=== PATIENT | female | born 1975 | race African-American/Black ===

== ENCOUNTER 2020-10-02 02:44 | Inpatient (IN) | payer SELFPAY ==
[2020-10-02] MEDS ORDERED: FUROSEMIDE 100 MG/10 ML VIAL IV ONE (03:15)
[2020-10-02 03:20] LABS: Arterial Blood Carboxyhemoglob 1.8 % (0-1.5); Blood O2 Saturation 82.3 % (92-98.5)
[2020-10-02 03:34] LABS: Protime INR 0.94
[2020-10-02] MEDS ORDERED: ONDANSETRON 4 MG/2 ML VIAL ONE ×3 (03:39→09:49)
[2020-10-02] MEDS ORDERED: HYDRALAZINE HCL 20 MG/ML VIAL ONE ×2 (03:41→09:23)
[2020-10-02] MEDS ORDERED: LABETALOL 20 MG/4ML SYRINGE IV ONE (03:54)
[2020-10-02 03:57] LABS: ALT/SGPT 84 U/L (12-78); AST/SGOT 51 U/L (15-37); Albumin 3.5 g/dL (3.4-5.0); Alkaline Phosphatase 204 U/L (45-117); BUN Blood Urea Nitrogen 36 mg/dL (7-18); Bicarbonate 21 mmol/L (21-32); Bilirubin Direct 0.2 mg/dL (0-0.2); Bilirubin Total 0.5 mg/dL (0.2-1.0); Magnesium 2.7 mg/dL (1.8-2.4); NT PRO-BNP 12138 pg/mL (<125); Potassium 4.4 mmol/L (3.5-5.1); Protein, Total 8.2 g/dL (6.4-8.2); Sodium Level 132 mmol/L (136-145); Troponin (Emerg Dept Use Only) < 0.02 ng/mL (0.0-0.045)
[2020-10-02 04:00] LABS: Glucose Level 515 mg/dL (74-106)
--- NOTE | 2020-10-02 04:16 | ER ---
Nurse's Notes [facility] Name: Alea Simental Age: 45 yrs Sex: Female : 1975 Arrival Date: 10/02/2020 Time: 02:45 Bed 28 [facility] MD: Diagnosis: Acute dyspnea. Hypoxia. Chronic renal failure. On dialysis. Uncontrolled hypertension Presentation: 10/02 02:50 Chief complaint: Patient states: pt arrives to ER, respiratory distress, reports sudden iw onset of SOB and chest pain tonight, hx of dialysis, MWF, pt is from out of town, pt diaphoretic, unable to speak in full sentences, tachypneic, unable to obtain SpO2, pt placed in ER bed 13, called RT for BiPAP. Coronavirus screen: At this time, the client does not indicate any symptoms associated with coronavirus-19. Ebola Screen: Patient negative for fever greater than or equal to 101.5 degrees Fahrenheit, and additional compatible Ebola Virus Disease symptoms Patient denies exposure to infectious person. Patient denies travel to an Ebola-affected area in the 21 days before illness onset. No symptoms or risks identified at this time. Initial Sepsis Screen: Does the patient meet any 2 criteria? No. Patient's initial sepsis screen is negative. Does the patient have a suspected source of infection? No. Patient's initial sepsis screen is negative. Risk Assessment: Do you want to hurt yourself or someone else? Patient reports no desire to harm self or others. Onset of symptoms was October 02, 2020. 02:50 Method Of Arrival: Wheelchair iw 02:50 Acuity: SAVANNAH 1 iw Historical: - Allergies: 05:24 Flagyl; aj1 - Home Meds: 05:24 amitriptyline 25 mg Oral tab [Active]; nifedipine 60 mg Oral TbER [Active]; carvedilol aj1 25 mg oral tab [Active]; ProAir HFA 90 mcg/actuation inhalation HFAA [Active]; medroxyprogesterone 10 mg Oral tab [Active]; Humalog 100 unit/mL Sub-Q crtg [Active]; amlodipine oral [Active]; - PMHx: 05:24 ESRD; Dialysis; M,W.F; Hypertension; aj1 Screenin:40 Abuse screen: Denies threats or abuse. Denies injuries from another. Nutritional aj1 screening: No deficits noted. Tuberculosis screening: No symptoms or risk factors identified. Assessment: 03:35 General: Appears distressed, uncomfortable, Behavior is agitated, anxious, restless. aj1 Pain: Complains of pain in chest Pain does not radiate. Pain currently is 10 out of 10 on a pain scale. Quality of pain is described as aching, sharp, stabbing. Neuro: Level of Consciousness is awake, alert, obeys commands. Cardiovascular: Reports chest pain, palpitations, shortness of breath, Heart tones S1 S2 present Patient's skin is warm and dry. Rhythm is sinus tachycardia. Respiratory: Reports shortness of breath at rest Airway is patent Respiratory effort is even, labored, with retractions, using tripod position, Respiratory pattern is regular, symmetrical, tachypnea Breath sounds with rales bilaterally. the patient has severe shortness of breath. GI: Abdomen is non-distended, Patient currently denies abdominal pain. : No signs and/or symptoms were reported regarding the genitourinary system. EENT: No signs and/or symptoms were reported regarding the EENT system. Derm: Skin is intact, Skin is diaphoretic, Skin is normal, Skin temperature is cool. Musculoskeletal: No signs and/or symptoms reported regarding the musculoskeletal system. 03:45 Reassessment: Dr Henderson notified that patient's BP remains elevated at this time. aj1 03:45 Reassessment: Patient refuses yuan and COVID swab at this time, states that if she aj1 feels less short of breath she will allow us to do it later. 04:03 Reassessment: glucose 515, creatinine 7.83 EDProvider informed. rr5 04:15 Reassessment: Patient states that she is still having a lot of chest pain. Notified Serg Barraza NP. Order received. 04:25 Reassessment: Patient is reporting nausea, Serg Barraza NP at bedside. Order received. aj1 04:30 Reassessment: Patient and/or family updated on plan of care and expected duration. Pain aj1 level reassessed. General: Appears in no apparent distress. uncomfortable, Behavior is cooperative, anxious. Pain: Complains of pain in chest. Neuro: Level of Consciousness is awake, alert, obeys commands. Cardiovascular: Patient's skin is warm and dry. Rhythm is sinus rhythm. Respiratory: Airway is patent Respiratory effort is even, unlabored, Respiratory pattern is regular, symmetrical, Breath sounds with rales bilaterally. the patient has mild shortness of breath. Derm: Skin is intact, Skin is dry, Skin is normal, Skin temperature is cool. 04:55 Reassessment: Patient is still reporting nausea. Notified Serg Barraza NP. Order aj1 received. 05:30 Reassessment: Patient appears in no apparent distress at this time. No changes from aj1 previously documented assessment. Patient and/or family updated on plan of care and expected duration. Pain level reassessed. Patient is alert, oriented x 3, equal unlabored respirations, skin warm/dry/pink. 06:00 Reassessment: Patient allowed staff to do COVID swab but is still refusing yuan at aj1 this time. 06:04 Reassessment: Patient continues to be nauseated, and has vomited small amounts. Patient aj1 removed Bi-PAP when she felt she needed to vomit and then put it back on. Notified Serg Barraza NP that patient is still vomiting. Patient still feels very short of breath at this time, O2 sats are 98% to 100% on Bi-PAP. Respiratory rate ranges from 28 to 42 breaths per minute at this time, depending on how much the patient is moving in bed. Patient has been instructed to try to rest and not move around too much. No new orders received at this time. 06:37 Reassessment: Dr. Garcia, hospitalist at bedside to evaluate patient. aj1 Vital Signs: 03:14 BP 252 / 124; Pulse 104; Resp 30 S; Pulse Ox 97% on BiPAP; iw 03:30 BP 240 / 110; Pulse 106; Resp 42; Pulse Ox 94% on BiPAP; aj1 03:40 BP 233 / 113; Pulse 107; Resp 38; Pulse Ox 99% on BiPAP; aj1 03:50 BP 164 / 96; Pulse 81; Resp 34; Pulse Ox 99% on BiPAP; aj1 03:55 BP 196 / 92; Pulse 78; Resp 35; Pulse Ox 99% on BiPAP; aj1 04:30 BP 205 / 96; Pulse 78; Resp 35; Pulse Ox 96% on BiPAP; aj1 05:00 BP 216 / 94; Pulse 84; Resp 28; Pulse Ox 96% ; aj1 05:30 BP 219 / 95; Pulse 83; Resp 28; Pulse Ox 98% on BiPAP; aj1 06:37 BP 220 / 93; Pulse 89; Resp 29; Pulse Ox 100% on BiPAP; aj1 ED Course: 02:45 Patient arrived in ED. es 02:55 Inserted saline lock: 20 gauge in right wrist, using aseptic technique. Blood collected.rr5 03:07 Triage completed. iw 03:23 XRAY Chest (1 view) In Process Unspecified. EDMS 03:28 Rainer Henderson MD is Attending Physician. pkl 03:30 Barbara Morales, WALDEMAR is Primary Nurse. aj1 03:30 Patient has correct armband on for positive identification. Placed in gown. Bed in low aj1 position. Call light in reach. Side rails up X2. telemetry monitor on. Pulse ox on. NIBP on. 04:13 Marc Garcia MD is Hospitalizing Provider. pkl 06:41 No provider procedures requiring assistance completed. aj1 09:49 Primary Nurse role handed off by Barbara Morales, WALDEMAR sv Administered Medications: 03:00 Drug: Lasix (furosemide) 80 mg Route: IVP; Site: right forearm; iw 03:20 Drug: Zofran (Ondansetron) 4 mg Route: IVP; Site: left wrist; aj1 03:31 Drug: hydrALAZINE 20 mg Route: IV; Rate: bolus; Site: right wrist; aj1 03:42 Drug: Labetalol 20 mg Route: IVP; Infused Over: 2 mins; Site: right wrist; aj1 04:25 Drug: Zofran (Ondansetron) 4 mg Route: IVP; Site: right wrist; aj1 04:55 Drug: Phenergan (promethazine) 12.5 mg Route: IVP; Site: right wrist; aj1 05:20 Drug: Insulin Regular Human 10 units {Co-Signature: dwight (Barbara Morales RN).} Route: iw IVP; Site: right wrist; 05:20 Drug: Insulin Regular Human 10 units {Co-Signature: dwight (Barbara Morales RN).} Route: iw Sub-Q; Site: right upper arm; Outcome: 04:15 Decision to Hospitalize by Provider. pkl 15:33 Patient left the ED. bd Signatures: Dispatcher [employer] EDMS Haydee Luu Angela, RN RN aj1 Saira Brink RN RN sv Lam, Pin, MD MD pkl Salyer, Edna es Williams, Irene, RN RN iw Marc Medrano RN RN rr5 Barbara Morales RN aj1 Corrections: (The following items were deleted from the chart) 05:53 05:47 BP 240 / 110; Pulse 106bpm; Resp 42bpm; Pulse Ox 94% BiPAP; aj1 aj1 06:40 04:30 Reassessment: Patient appears in no apparent distress at this time. No changes aj1 from previously documented assessment. Patient and/or family updated on plan of care and expected duration. Pain level reassessed. Patient is alert, oriented x 3, equal unlabored respirations, skin warm/dry/pink. aj1
--- NOTE | 2020-10-02 04:16 | EDPHYS ---
Physician Documentation [facility] Name: Alea Simental Age: 45 yrs Sex: Female : 1975 Arrival Date: 10/02/2020 Time: 02:45 Bed 28 Private MD: ED Physician Rainer Henderson HPI: 10/02 03:32 This 45 yrs old Black Female presents to ER via Wheelchair with complaints of Breathing pkl Difficulty, Respiratory Distress. 03:32 The patient has shortness of breath at rest. Onset: The symptoms/episode began/occurred pkl suddenly, just prior to arrival. Associated signs and symptoms: Pertinent positives: diaphoresis. Historical: - Allergies: 05:24 Flagyl; aj1 - Home Meds: 05:24 amitriptyline 25 mg Oral tab [Active]; nifedipine 60 mg Oral TbER [Active]; carvedilol aj1 25 mg oral tab [Active]; ProAir HFA 90 mcg/actuation inhalation HFAA [Active]; medroxyprogesterone 10 mg Oral tab [Active]; Humalog 100 unit/mL Sub-Q crtg [Active]; amlodipine oral [Active]; - PMHx: 05:24 ESRD; Dialysis; M,W.F; Hypertension; aj1 ROS: 03:32 Eyes: Negative for injury, pain, redness, and discharge, ENT: Negative for injury, pkl pain, and discharge, Neck: Negative for injury, pain, and swelling. 03:32 Cardiovascular: Positive for chest pain. 03:32 Respiratory: Positive for shortness of breath, at rest. 03:32 Abdomen/GI: Negative for abdominal pain, nausea, vomiting, and diarrhea. 03:32 Back: Negative for injury or acute deformity. 03:32 : Negative for urinary symptoms. 03:32 MS/extremity: Negative for acute changes. 03:32 Skin: Positive for diaphoresis. 03:32 Neuro: Negative for altered mental status, loss of consciousness. Exam: 03:32 Head/Face: Normocephalic, atraumatic. Eyes: Pupils equal round and reactive to light, pkl extra-ocular motions intact. Lids and lashes normal. Conjunctiva and sclera are non-icteric and not injected. Cornea within normal limits. Periorbital areas with no swelling, redness, or edema. ENT: Nares patent. No nasal discharge, no septal abnormalities noted. Tympanic membranes are normal and external auditory canals are clear. Oropharynx with no redness, swelling, or masses, exudates, or evidence of obstruction, uvula midline. Mucous membranes moist. Neck: Trachea midline, no thyromegaly or masses palpated, and no cervical lymphadenopathy. Supple, full range of motion without nuchal rigidity, or vertebral point tenderness. No Meningismus. Chest/axilla: Normal chest wall appearance and motion. Nontender with no deformity. No lesions are appreciated. 03:32 Cardiovascular: Rate: tachycardic, actual rate is 104 bpm, Rhythm: regular. 03:32 Respiratory: moderate respiratory distress is noted, Respirations: labored breathing, Breath sounds: rales, that are moderate, are scattered. 03:32 Abdomen/GI: Bowel sounds: normal, Palpation: abdomen is soft and non-tender. 03:32 Back: Exam negative for acute changes. 03:32 : Exam negative for acute changes. 03:32 Musculoskeletal/extremity: Exam is negative for acute changes. 03:32 Skin: Appearance: diaphoresis is noted. 03:32 Neuro: Orientation: is normal, Mentation: is normal, Cranial nerves: grossly normal, Motor: is normal. Vital Signs: 03:14 BP 252 / 124; Pulse 104; Resp 30 S; Pulse Ox 97% on BiPAP; iw 03:30 BP 240 / 110; Pulse 106; Resp 42; Pulse Ox 94% on BiPAP; aj1 03:40 BP 233 / 113; Pulse 107; Resp 38; Pulse Ox 99% on BiPAP; aj1 03:50 BP 164 / 96; Pulse 81; Resp 34; Pulse Ox 99% on BiPAP; aj1 03:55 BP 196 / 92; Pulse 78; Resp 35; Pulse Ox 99% on BiPAP; aj1 04:30 BP 205 / 96; Pulse 78; Resp 35; Pulse Ox 96% on BiPAP; aj1 05:00 BP 216 / 94; Pulse 84; Resp 28; Pulse Ox 96% ; aj1 05:30 BP 219 / 95; Pulse 83; Resp 28; Pulse Ox 98% on BiPAP; aj1 06:37 BP 220 / 93; Pulse 89; Resp 29; Pulse Ox 100% on BiPAP; aj1 MDM: 03:28 Patient medically screened. pkl 04:11 Data reviewed: vital signs, nurses notes, lab test result(s), EKG, radiologic studies, pkl plain films. ED course: Talked to Serg Barraza ( MOBILE MANAGER ) Admit to Dr. Marc Garcia. 10/02 02:54 Order name: Basic Metabolic Panel 10/02 02:54 Order name: CBC with Diff; Complete Time: 00:20 10/02 02:54 Order name: LFT's; Complete Time: 04:05 10/02 02:54 Order name: Magnesium; Complete Time: 04:05 10/02 02:54 Order name: NT PRO-BNP; Complete Time: 04:05 10/02 02:54 Order name: PT-INR; Complete Time: 04:05 10/02 02:54 Order name: Troponin (emerg Dept Use Only); Complete Time: 04:05 10/02 02:54 Order name: Basic Metabolic Panel; Complete Time: 04:05 [facility] 10/02 03:17 Order name: ABG Arterial Blood Gas; Complete Time: 03:30 [facility] 10/02 03:26 Order name: COVID-19 : Document "Date of Symptom Onset" if Symptomatic. [facility] 10/02 03:27 Order name: CORONAVIRUS [facility] 10/02 05:50 Order name: CBC Smear Scan; Complete Time: 00:20 [facility] 10/02 06:59 Order name: Glucose, Ancillary Testing; Complete Time: 00:20 [facility] 10/02 07:16 Order name: SARS-COV-2 RT PCR; Complete Time: 00:20 [facility] 10/02 02:52 Order name: BIPAP [facility] 10/02 02:54 Order name: XRAY Chest (1 view); Complete Time: 00:20 10/02 08:25 Order name: US; Complete Time: 00:20 [facility] 10/02 09:11 Order name: Glucose, Ancillary Testing; Complete Time: 00:20 [facility] 10/02 11:48 Order name: Troponin I; Complete Time: 00:20 [facility] 10/02 11:48 Order name: Lipid Profile; Complete Time: 00:20 [facility] 10/02 11:48 Order name: T4 Free; Complete Time: 00:20 [facility] 10/02 11:48 Order name: Thyroid Stimulating Hormone; Complete Time: 00:20 [facility] 10/02 12:16 Order name: Glucose, Ancillary Testing; Complete Time: 00:20 EDMS 10/02 02:54 Order name: EKG; Complete Time: 02:55 iw 10/02 02:54 Order name: Cardiac monitoring; Complete Time: 03:31 iw 10/02 02:54 Order name: EKG - Nurse/Tech; Complete Time: 05:00 iw 10/02 02:54 Order name: IV Saline Lock; Complete Time: 03:32 iw 10/02 02:54 Order name: Labs collected and sent; Complete Time: 03:32 iw 10/02 02:54 Order name: O2 Per Protocol; Complete Time: 03:32 iw 10/02 02:54 Order name: O2 Sat Monitoring; Complete Time: 03:32 iw 10/02 03:48 Order name: Labs - recollect needed: purple top; Complete Time: 05:47 mw2 10/02 04:53 Order name: Alexandermanisha sanderson Administered Medications: 03:00 Drug: Lasix (furosemide) 80 mg Route: IVP; Site: right forearm; iw 03:20 Drug: Zofran (Ondansetron) 4 mg Route: IVP; Site: left wrist; aj1 03:31 Drug: hydrALAZINE 20 mg Route: IV; Rate: bolus; Site: right wrist; aj1 03:42 Drug: Labetalol 20 mg Route: IVP; Infused Over: 2 mins; Site: right wrist; aj1 04:25 Drug: Zofran (Ondansetron) 4 mg Route: IVP; Site: right wrist; aj1 04:55 Drug: Phenergan (promethazine) 12.5 mg Route: IVP; Site: right wrist; aj1 05:20 Drug: Insulin Regular Human 10 units {Co-Signature: aj1 (Barbara Morales RN).} Route: iw IVP; Site: right wrist; 05:20 Drug: Insulin Regular Human 10 units {Co-Signature: anne1 (Barbara Morales RN).} Route: iw Sub-Q; Site: right upper arm; Disposition: 10/02/20 04:15 Hospitalization ordered by Marc Garcia for Inpatient Admission. Preliminary diagnosis is Acute dyspnea. Hypoxia. Chronic renal failure. On dialysis. Uncontrolled hypertension. - Bed requested for [facility] ER HOLD. - Status is Inpatient Admission. bd - Condition is Stable. - Problem is new. - Symptoms have improved. Signatures: Dispatcher [employer] EDMS Haydee Luu bd Barbara Morales RN RN aj1 Saira Brink RN RN sv Lam, Pin, MD MD pkl Belem Kurtz RN WALDEMAR iw Serg Barraza, PRESSURE CONTROL SUPERVISOR-C PRESSURE CONTROL SUPERVISOR-Cla1 Tuan Urbina mw2 Barbara Morales RN aj1 Corrections: (The following items were deleted from the chart) 07:22 04:15 Hospitalization Ordered by Marc Garcia MD for Inpatient Admission. Preliminary sv diagnosis is Acute dyspnea. Hypoxia. Chronic renal failure. On dialysis. Uncontrolled hypertension. Bed requested for Telemetry/MedSurg (Inpatient). Status is Inpatient Admission. Condition is Stable. Problem is new. Symptoms have improved. pkl 15:33 07:22 10/02/2020 04:15 Hospitalization Ordered by Marc Garcia MD for Inpatient bd Admission. Preliminary diagnosis is Acute dyspnea. Hypoxia. Chronic renal failure. On dialysis. Uncontrolled hypertension. Bed requested for [facility] ER HOLD. Status is Inpatient Admission. Condition is Stable. Problem is new. Symptoms have improved. sv
[2020-10-02] MEDS ORDERED: MORPHINE 2 MG/ML SYR ONE (04:34)
--- NOTE | 2020-10-02 04:40 | P.HP ---
Certification for Inpatient Patient admitted to: Inpatient With expected LOS: >2 Midnights Patient will require the following post-hospital care: None Practitioner: I am a practitioner with admitting privileges, knowledge of patient current condition, hospital course, and medical plan of care. Services: Services provided to patient in accordance with Admission requirements found in Title 42 Section 412.3 of the Code of Federal Regulations <ChristiSerg - Last Filed: 10/02/20 08:16> Patient History Date of Service: 10/02/20 Primary Care Provider: Out of town Reason for admission: Dyspnea, hypoxia History of Present Illness: 45-year-old female with history of hypertension, diabetes m ellitus type 2, ESRD on HD-MWF presents emergency department in respiratory distress. Patient barely able to speak, answer most questions with head nods on BiPAP at this time. [facility]/shortness of breath this evening, patient reports that she has not missed a dialysis, last dialysis was on Friday and completed. Upon arrival to the emergency department patient was placed on BiPAP, is currently tolerating BiPAP with FiO2 of 35%, patient significantly hypertensive with initial blood pressure in the 250s over 120 is, this has improved to around 210/100, chest x-ray demonstrates diffuse pulmonary edema, patient with crackles/rales on exam. Patient reports making some small amounts of urine, given 80 mg of Lasix IV. Chemistry significant for sodium 132 creatinine 7.83 BUN 36 GFR 7 glucose 515 magnesium 2.7 potassium 4.4 AST 51 ALT 84, alk-phos 204 BNP 29685 ABG demonstrates PO2 51.9 pH 7.35 anion gap is 12, patient not acidotic does not appear to be in DKA at this time. Given 10 units IV insulin/10 units subcu insulin. ED provider wishes to admit for further evaluation and management. - Past Medical/Surgical History -: Hypertension -: Diabetes mellitus type 2 -: ESRD on HD MWF -: Dialysis catheter -: Dialysis fistula left upper arm Psychosocial/ Personal History: Unable to obtain at this time, patient on BiPAP only answering with yes no questions - Family History Father Notes: Unable to obtain at this time due to patient's respiratory status - Social History Smoking Status: Unknown if ever smoked Place of Residence: Home <Serg Barraza - Last Filed: 10/02/20 08:16> Date of Service: 10/02/20 <Marc Garcia - Last Filed: 10/02/20 14:13> Allergies metronidazole [From Flagyl] Allergy (Verified 10/02/20 07:38) Hives heparin Adverse Reaction (Verified 10/02/20 09:58) Nausea/Vomiting Review of Systems Respiratory: Shortness of Breath, As per HPI Cardiovascular: Chest Pain, As per HPI <Serg Barraza - Last Filed: 10/02/20 08:16> Physical Examination - Physical Exam General: Alert, In no apparent distress, Oriented x3 HEENT: Atraumatic, PERRLA, Mucous membr. moist/pink Neck: Supple, 2+ carotid pulse no bruit, No LAD Respiratory: Crackles/rales (Bilaterally), Other (Tachypneic, dyspnea, on BiPAP FiO2 35% saturating 97%) Cardiovascular: Regular rate/rhythm, Normal S1 S2, Edema (2+ nonpitting edema bilateral lower extremities) Capillary refill: <2 Seconds Gastrointestinal: Normal bowel sounds, No tenderness, No masses, No rebound Musculoskeletal: No tenderness Integumentary: No rashes Neurological: Normal speech, Normal strength at 5/5 x4 extr, Normal tone, Normal affect - Studies Laboratory Data (last 24 hrs) 10/02/20 03:00: PT 10.8, INR 0.94 10/02/20 03:00: Sodium 132 L, Potassium 4.4, BUN 36 H, Creatinine 7.83 H*, Glucose 515 H*, Magnesium 2.7 H, Total Bilirubin 0.5, AST 51 H, ALT 84 H, Alkaline Phosphatase 204 H <Serg Barraza - Last Filed: 10/02/20 08:16> - Studies Laboratory Data (last 24 hrs) 10/02/20 05:15: WBC 13.00 H, Hgb 8.5 L, Hct 26.2 L, Plt Count 203 10/02/20 03:00: PT 10.8, INR 0.94 10/02/20 03:00: Sodium 132 L, Potassium 4.4, BUN 36 H, Creatinine 7.83 H*, Glucose 515 H*, Magnesium 2.7 H, Total Bilirubin 0.5, AST 51 H, ALT 84 H, Alkaline Phosphatase 204 H <Marc Garcia - Last Filed: 10/02/20 14:13> Assessment and Plan - Plan Assessment Acute hypoxic respiratory failure secondary to ESRD on HD with volume overload Diabetes mellitus type 2 with hyperglycemia Hypertension Plan Acute hypoxic respiratory failure secondary to ESRD on HD with volume overload: Continue with respiratory support, BiPAP supplemental oxygen as needed. Patient given 80 mg IV Lasix in the emergency department to promote diuresis, Alexander catheter ordered, patient not compliant with this therapy at this time. case discussed with nephrology for urgent dialysis, potassium normal, blood pressure improving, respiratory status improving. DVT prophylaxis with heparin 5000 subcutaneous twice daily. Patient denies missing any dialysis, reports this usually does not happen to her, will trend troponins as well and will need to look in to other causes of patients acute respiratory failure. Diabetes mellitus type 2 with hyperglycemia: Blood glucose initially 515, ABG without acidosis, anion gap 12 doubt DKA at this time, patient given IV/subcu insulin in the emergency department, will recheck blood glucose and obtain and verify patient's home medications. Will obtain A1c level. Hypertension: Obtain and continue home medications, make adjustments as necessary. Discharge Plan: Home Plan to discharge in: 48 Hours - Advance Directives Does patient have a Living Will: No Does patient have a Durable POA for Healthcare: No - Code Status/Comfort Care Code Status Assessed: Yes (Full code) Critical Care: No Time Spent Managing Pts Care (In Minutes): 55 <Serg Barraza - Last Filed: 10/02/20 08:16> - Plan Patient seen this morning. Still with some nausea, states she gets like this when your glucose is very high Nephrology consulted - pt to undergo dialysis this morning, severe HTN and fluid overload, lasix and anti-hypertensives given glucose improving patient not wanting to talk further at this time due to SOB and nausea. Will re-eval after dialysis. <Marc Garcia - Last Filed: 10/02/20 14:13>
[2020-10-02] MEDS ORDERED: PROMETHAZINE INJ 25 MG/ML AMP ONE (05:11)
[2020-10-02] MEDS ORDERED: INSULIN -REGULAR HUMAN 50 UNIT/0.5 ML ML ONE ×2 (05:24→09:24)
[2020-10-02 05:46] LABS: Absolute Lymphocytes (CBC) 0.7 K/uL (0.7-4.9); Basophils % 0.6 % (0-1.3); Hematocrit 26.2 % (36.0-45.0); Lymphocytes % 5.1 % (15.3-44.8); MPV 9.9 fL (7.6-11.3); RBC Red Blood Cell Count 2.77 M/uL (3.86-4.86)
[2020-10-02] MEDS ORDERED: HYDRALAZINE HCL 20 MG/ML VIAL IV PRN (07:38)
[2020-10-02] MEDS ORDERED: ONDANSETRON 4 MG/2 ML VIAL IV PRN (07:38)
--- NOTE | 2020-10-02 07:41 | RAD REPORT ---
EXAM DESCRIPTION: Antione Single View10/02/2020 3:24 am CLINICAL HISTORY: Shortness of breath COMPARISON: none FINDINGS: Moderate to marked bilateral pulmonary opacities. The heart is moderately enlarged. IMPRESSION: These findings most likely represent CHF with pulmonary edema. Superimposed pneumonia wi thin the right lung base could also have this appearance
--- NOTE | 2020-10-02 08:24 | RAD REPORT ---
EXAM DESCRIPTION: US - Abdomen Exam Limited - 10/02/2020 8:11 am CLINICAL HISTORY: Abdominal pain. COMPARISON: None. FINDINGS: The gallbladder wall is not thickened. A gallstone is not seen. The biliary tree is normal caliber. The liver has an increased echotexture. Small left and small to moderate right pleural effusions IMPRESSION: Unremarkable gallbladder ultrasound. Increased hepatic echotexture probably fatty infiltration
[2020-10-02 08:58] LABS: Blood Morphology Comment NOT SEEN (NOT SEEN); Platelet Estimate ADEQ; White Blood Cell Scan OK (OK)
[2020-10-02] MEDS ORDERED: HEPARIN 5000 UNIT/ML 1 ML VIAL SQ SCH (09:00)
[2020-10-02] MEDS: INSULIN -REGULAR HUMAN 50 UNIT/0.5 ML ML SQ SCH ×2 (09:09→11:30)
[2020-10-02 09:14] VITALS: O2SAT 97
[2020-10-02] MEDS ORDERED: HEPARIN 5000 UNIT/ML 1 ML VIAL ONE (09:23)
[2020-10-02] MEDS ORDERED: cloNIDine HCL 0.1 MG TAB PO ONE ×2 (10:06)
[2020-10-02 11:30] VITALS: BMI 23.9
[2020-10-02 11:48] LABS: Thyroid Stimulating Hormone 1.3 uIU/mL (0.360-3.740); Troponin I 0.31 ng/mL (0.0-0.045)
[2020-10-02 12:08] VITALS: BP 147/71; TEMP 97.6
--- NOTE | 2020-10-02 17:57 | P.DS ---
Admission Date: 10/02/20 Discharge Date: 10/02/20 Primary Care Provider: Out of town Disposition: AMA-LEFT AGAINST MEDICAL ADVIC Discharge Condition: SERIOUS Reason for Admission: Dyspnea, hypoxia Procedures: CXR (10/02): Moderate to marked bilateral pulmonary opacities. The heart is moderately enlarged. These findings most likely represent CHF with pulmonary edema. Superimposed pneumonia within the right lung base could also have this appearance Abd U/S (10/02): Unremarkable gallbladder ultrasound. Increased hepatic echotexture probably fatty infiltration Problem List: Acute hypoxic respiratory failure secondary to ESRD on HD with volume overload Diabetes mellitus type 2 with hyperglycemia Hypertension Brief History of Present Illness: 45-year-old female with history of hypertension, diabetes mellitus type 2, ESRD on HD-MWF presents emergency department in respiratory distress. Patient barely able to speak, answer most questions with head nods on BiPAP at this time. Patient is from out of [facility] and developed chest pain/shortness of breath this evening, patient reports that she has not missed a dialysis, last dialysis was on Friday and completed. Upon arrival to the emergency department patient was placed on BiPAP, is currently tolerating BiPAP with FiO2 of 35%, patient significantly hypertensive with initial blood pressure in the 250s over 120 is, this has improved to around 210/100, chest x-ray demonstrates diffuse pulmonary edema, patient with crackles/rales on exam. Patient reports making some small amounts of urine, given 80 mg of Lasix IV. Chemistry significant for sodium 132 creatinine 7.83 BUN 36 GFR 7 glucose 515 magnesium 2.7 potassium 4.4 AST 51 ALT 84, alk-phos 204 BNP [id number] ABG demonstrates PO2 51.9 pH 7.35 anion gap is 12, patient not acidotic does not appear to be in DKA at this time. Given 10 units IV insulin/10 units subcu insulin. ED provider wishes to admit for further evaluation and management. Hospital Course: Patient underwent dialysis with some mild improvement in her blood pressure, improvement in breathing. Her 2nd troponin increased to 0.3. Patient was feeling better and stated she had to catch her flight back home tonight. 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 I explained it was unsafe for her to be discharged, her BP remained >180/100, at times even 200/100. Her troponin was rising and I explained that if she were to leave she could worsen with heart attack, stroke, or flash pulmonary edema, and she may . She expressed understanding and still wanted to leave, shouting expletives. Patient left AMA Vital Signs/Physical Exam: Temp Pulse Resp BP Pulse Ox 97.6 F 84 24 H 147/71 H 100 10/02/20 12:00 10/02/20 12:00 10/02/20 12:00 10/02/20 12:00 10/02/20 12:00 Laboratory Data at Discharge: WBC 13.00 K/uL (4.3-10.9) H 10/02/20 05:15 Hgb 8.5 g/dL (12.0-15.0) L 10/02/20 05:15 Hct 26.2 % (36.0-45.0) L 10/02/20 05:15 Plt Count 203 K/uL (152-406) 10/02/20 05:15 PT 10.8 SECONDS (9.5-12.5) 10/02/20 03:00 INR 0.94 10/02/20 03:00 Sodium 132 mmol/L (136-145) L 10/02/20 03:00 Potassium 4.4 mmol/L (3.5-5.1) 10/02/20 03:00 BUN 36 mg/dL (7-18) H 10/02/20 03:00 Creatinine 7.83 mg/dL (0.55-1.3) H* 10/02/20 03:00 Glucose 515 mg/dL (74-106) H* 10/02/20 03:00 Magnesium 2.7 mg/dL (1.8-2.4) H 10/02/20 03:00 Total Bilirubin 0.5 mg/dL (0.2-1.0) 10/02/20 03:00 AST 51 U/L (15-37) H 10/02/20 03:00 ALT 84 U/L (12-78) H 10/02/20 03:00 Alkaline Phosphatase 204 U/L (45-117) H 10/02/20 03:00 Troponin I Cancelled 10/02/20 17:00 Triglycerides 29 mg/dL (<150) 10/02/20 11:00 Cholesterol 129 mg/dL (<200) 10/02/20 11:00 HDL Cholesterol 105 mg/dL (40-60) H 10/02/20 11:00 Cholesterol/HDL Ratio 1.23 10/02/20 11:00 Followup: NONE,NONE [Primary Care Provider] - Time spent managing pt's care (in minutes): 35
--- NOTE | 2020-10-05 15:07 | CON ---
Date of Consultation: 10/02/2020 Chief Complaint: End-stage renal disease, severe fluid overload, hypertensive emergency. History Of Present Illness: The patient is a 45-year-old woman with history of hypertension, diabetes mellitus type 2, end-stage renal disease, on dialysis Friday, Friday and Friday. She presented to the emergency room because of severe shortness of breath. She was found to have severe hypertension, systolic pressure was 200. She received IV hydralazine and clonidine for blood pressure control and emergent dialysis was ordered to treat fluid overload and to provide metabolic clearance . Patient was found to have pulmonary edema. First set of troponin was normal, although the second troponin is mildly elevated and cardiology consultation was requested by primary team. On arrival to emergency room, patient was placed on BiPAP. She was tolerating BiPAP. The patient had significant hypertension. Blood pressure on arrival to the emergency room was 250/120. It has improved to 210/100 with medication and remains elevated. Patient had chest x-ray which demonstrated diffuse pulmonary edema. The patient was found to have hyperglycemia. Potassium was 4.4. BNP was 12,138. ABG showed pH of 7.35. The patient did not appear to be in DKA. She had hyperglycemia. She received IV insulin for hyperglycemia. Review of Systems: The patient cannot provide review of systems because she is short of breath and is on BiPAP. Past Medical History: Hypertension diabetes mellitus, end-stage renal disease on dialysis Friday, Friday, Friday, dialysis catheter, dialysis fistula placement. Family History: Unable to obtain family history because the patient is on BiPAP and cannot provide family history. Physical Examination: General: Patient is alert and he is on BiPAP. Eyes: Anicteric sclerae. EOMI. Neck: Supple. No bruits. Respiratory: Bilateral rales. Patient has tachypnea. She is on BiPAP saturating 97%. CARDIOVASCULAR: S1, S2. No pericardial friction rub. Abdomen: Soft. Benign. Obese. Extremities: Edema _ in both ankles. Neurological: Moving extremities. No tremor. Cranial nerves grossly intact. Skin: warm and dry, no oozing Laboratory Data: potassium 4.4, sodium 132, magnesium 2.7. Impression And Plan: 1. End-stage renal disease, fluid overload, pulmonary edema, hypertensive emergency. The patient with continue hydralazine and clonidine and the patient is hypervolemic and this is a contributory factor for unstable blood pressure, hypertensive emergency with congestive heart failure exacerbation. STAT dialysis was ordered for volume control and to obtain metabolic clearance. 2. Diabetes mellitus, uncontrolled severe hyperglycemia, continue insulin. 3. Hypertension. Resume blood pressure medications. Continue IV hydralazine. Patient may need to have beta julio for acute coronary syndrome, second set of troponin is elevated and Cardiology will be consulted. Patient has history of end-stage renal disease. She will remain on p.o. fluid restriction, low- sodium diet. SELENA/MODL Voice ID: [id number] Report ID: [id number] DAVIDE
[2020-10-05 19:34] LABS: HBsAG Nonreactive (Nonreactive)
== END 2020-10-02 15:45 | disposition left against medical advice (07) | DRG 189 ==
LOC: ER 02:44 → ERHOLD 05:58
PROVIDERS: ADMIT Hospitalist; ATTEND Hospitalist
PROC: 5A09357 Assistance with Respiratory Ventilation, Less than 24 Consecutive Hours, Continuous Positive Airway Pressure (ICD-10-PCS; principal; 2020-10-02)
PROC: 5A1D70Z Performance of Urinary Filtration, Intermittent, Less than 6 Hours Per Day (ICD-10-PCS; 2020-10-02)
DX: J96.01 Acute respiratory failure with hypoxia (principal); N18.6 End stage renal disease; I12.0 Hypertensive chronic kidney disease with stage 5 chronic kidney disease or end stage renal disease; J81.1 Chronic pulmonary edema; I16.1 Hypertensive emergency; E87.70 Fluid overload, unspecified; E11.22 Type 2 diabetes mellitus with diabetic chronic kidney disease; E11.65 Type 2 diabetes mellitus with hyperglycemia; Z79.4 Long term (current) use of insulin; Z79.899 Other long term (current) drug therapy; Z88.1 Allergy status to other antibiotic agents; Z53.29 Procedure and treatment not carried out because of patient's decision for other reasons; Z99.2 Dependence on renal dialysis; Z91.19 Patient's noncompliance with other medical treatment and regimen; Z95.828 Presence of other vascular implants and grafts; Z88.8 Allergy status to other drugs, medicaments and biological substances; Z20.822 Contact with and (suspected) exposure to COVID-19
CPT/HCPCS: 36415; 71045; 76705; 80048; 80061; 80076; 82805; 82947; 83735; 83880; 84439; 84443; 84484; 85025; 85610; 86317; 86705; 87340; 90935; 93005; 94660; 96372; 99291; J0360; J1644; J2270; J2405; J2550; U0003